=== PATIENT | male | born 1955 | race Caucasian/White ===

== ENCOUNTER 2018-04-26 09:19 | Inpatient (IN) | payer MEDICARE, MEDICAID ==
[~2018-04-26] VITALS: Ht 185.4 cm; Wt 100.9 kg
[2018-04-26] MEDS ORDERED: BUPIVACAINE/PF 0.5% ONE (10:01)
[2018-04-26] MEDS ORDERED: BACITRACIN 50,000 UNIT ONE (10:01)
[2018-04-26] MEDS ORDERED: BACITRACIN OINT 500U/GM, 15 GM ONE (10:01)
[2018-04-26] MEDS ORDERED: EPINEPHRINE 1 MG/ML, 1ML ONE (10:01)
[2018-04-26] MEDS ORDERED: LACTATED RINGERS 1,000 ML IV SCH (12:24)
[2018-04-26] MEDS ORDERED: ATOR20TA PO (12:35)
[2018-04-26] MEDS ORDERED: VARE1TAB21 PO (12:35)
[2018-04-26] MEDS ORDERED: SITA1TAB5 PO (12:35)
[2018-04-26] MEDS ORDERED: DULA1.5P INJ (12:35)
[2018-04-26] MEDS ORDERED: ASPI-496 PO (12:35)
[2018-04-26] MEDS ORDERED: GABA800T2 PO (12:35)
[2018-04-26] MEDS ORDERED: EMPA25TA PO (12:35)
[2018-04-26] MEDS ORDERED: TIZA4CAP PO (12:35)
[2018-04-26] MEDS ORDERED: DICL50TA4 PO (12:35)
[2018-04-26] MEDS ORDERED: CARV6.252 PO (12:35)
[2018-04-26] MEDS ORDERED: OXYC-307 PO (12:35)
[2018-04-26 13:05] VITALS: BP 131/85
[2018-04-26] MEDS ORDERED: MIDAZOLAM 1 MG/ML, 2ML ONE (13:38)
[2018-04-26] MEDS ORDERED: FENTANYL PF 250 MCG/5ML ONE (13:38)
[2018-04-26] MEDS ORDERED: CEFAZOLIN 1,000 MG ONE (13:39)
[2018-04-26] MEDS ORDERED: ROCURONIUM 10MG/ML,5ML ONE (13:39)
[2018-04-26] MEDS ORDERED: NEOSTIGMINE 1 MG/ML, 10ML ONE (13:39)
[2018-04-26] MEDS ORDERED: DEXAMETHASONE 4 MG/ML, 1ML ONE (13:39)
[2018-04-26] MEDS ORDERED: GLYCOPYRROLATE 0.2MG/1ML, 5ML ONE (13:39)
[2018-04-26] MEDS ORDERED: ONDANSETRON 2MG/ML, 2ML ONE (13:39)
[2018-04-26] MEDS ORDERED: PROPOFOL 10 MG/ML, 20ML ONE (13:39)
[2018-04-26] MEDS ORDERED: SUCCINYLCHOLINE 20 MG/ML, 10ML ONE (13:39)
[2018-04-26] MEDS ORDERED: PROPOFOL 50 ML ONE (13:45)
[2018-04-26] MEDS ORDERED: LIDOCAINE-MPF 2% ,5ML ONE (14:36)
[2018-04-26] MEDS ORDERED: LIDOCAINE 4%, 4 ML SYR/CANN TP ONE (14:36)
[2018-04-26] MEDS ORDERED: EPHEDRINE 50 MG/ML, 1ML ONE (14:36)
[2018-04-26] MEDS ORDERED: DIAZEPAM 5 MG/ML, 2ML IVPush PRN (15:00)
[2018-04-26] MEDS ORDERED: OXYcodone 5 MG/5 ML ORAL.SOL UDC PO PRN (15:00)
[2018-04-26] MEDS ORDERED: FENTANYL PF 100 MCG/2ML IV PRN (15:00)
[2018-04-26] MEDS ORDERED: HYDROmorphone 1 MG/ML, 1ML IV PRN (15:00)
[2018-04-26] MEDS ORDERED: ONDANSETRON ODT 8 MG PO PRN (15:00)
[2018-04-26] MEDS ORDERED: PROCHLORPERAZINE 5 MG/ML, 2ML IV PRN (15:00)
[2018-04-26] MEDS ORDERED: MEPERIDINE/PF 25MG/0.5ML IVPush PRN (15:00)
[2018-04-26] MEDS ORDERED: ONDANSETRON 2MG/ML, 2ML IV PRN ×2 (15:00→18:30)
[2018-04-26] MEDS ORDERED: ALBUTEROL/IPRATROPIUM 2.5MG/0.5MG, 3 ML NPPB PRN (15:00)
[2018-04-26] MEDS ORDERED: MORPHINE SULFATE 4 MG/ML, 1ML IVPush PRN (15:00)
[2018-04-26] MEDS ORDERED: ACETAMINOPHEN 325 MG TABLET PO PRN (15:00)
[2018-04-26] MEDS ORDERED: ACETAMINOPHEN 650 MG/20.3 ML UDC ONE (16:39)
[2018-04-26] MEDS ORDERED: OXYcodone 5 MG/5 ML ORAL.SOL UDC ONE (16:40)
[2018-04-26] MEDS ORDERED: FENTANYL PF 100 MCG/2ML ONE (16:40)
[2018-04-26 17:30] VITALS: BP 143/88
[2018-04-26] MEDS ORDERED: DIPHENHYDRAMINE 50 MG CAPSULE PO PRN (18:30)
[2018-04-26] MEDS ORDERED: BISACODYL 10 MG SUPP PR PRN (18:30)
[2018-04-26] MEDS ORDERED: OXYcodone/APAP 5/325MG TABLET PO PRN (18:30)
[2018-04-26] MEDS ORDERED: morphine SULFATE 10 MG/ML, 1ML IV PRN (18:30)
[2018-04-26] MEDS ORDERED: MAGNESIUM HYDROXIDE 8%, 30ML UDC PO PRN (18:30)
[2018-04-26] MEDS ORDERED: DIPHENHYDRAMINE 50 MG/ML, 1ML IM PRN (18:30)
[2018-04-26] MEDS ORDERED: DIPHENHYDRAMINE 50 MG/ML, 1ML IVPush PRN (18:30)
[2018-04-26] MEDS ORDERED: PROMETHAZINE 25 MG/ML, 1ML IM PRN (18:30)
[2018-04-26] MEDS ORDERED: CYCLOBENZAPRINE 10 MG TABLET PO PRN (18:30)
[2018-04-26] MEDS: TIZANIDINE 4MG TABLET PO SCH (20:13)
[2018-04-26] MEDS: NS + 20MEQ KCL 1,000 ML IV SCH (20:22)
[2018-04-26 20:28] VITALS: BP 139/92
[2018-04-26] MEDS ORDERED: ATORVASTATIN 20 MG TABLET PO SCH (21:00)
[2018-04-26] MEDS ORDERED: JANUMET HOMEMEDPO SCH (21:00)
[2018-04-26] MEDS ORDERED: GABAPENTIN 400 MG CAPSULE PO SCH (21:00)
[2018-04-26] MEDS: INSULIN REGULAR 100 UNITS/ML, 3ML VIAL SQ-INSULIN SCH (21:00)
[2018-04-26] MEDS ORDERED: CEFAZOLIN 2,000 MG in SODIUM CHLORIDE 0.9% 50 ML IVPB SCH (21:30)
[2018-04-26] MEDS: VARENICLINE 1MG TABLET PO SCH (22:05)
[2018-04-26] MEDS: metFORMIN 500 MG TABLET PO SCH (22:06)
[2018-04-26] MEDS: CEFAZOLIN PMX 2GM/50ML 50 ML IVPB SCH (23:08)
[2018-04-27 00:06] VITALS: BP 125/84
[2018-04-27] MEDS ORDERED: CARVEDILOL 6.25 MG TABLET PO SCH (06:00)
[2018-04-27 06:03] VITALS: BP 118/85
[2018-04-27] MEDS: TIZANIDINE 4MG TABLET PO SCH ×3 (06:04→15:17)
[2018-04-27] MEDS: NS + 20MEQ KCL 1,000 ML IV SCH ×2 (06:05→16:49)
[2018-04-27] MEDS: INSULIN REGULAR 100 UNITS/ML, 3ML VIAL SQ-INSULIN SCH ×3 (06:05→16:00)
[2018-04-27 07:05] VITALS: BP 116/73
[2018-04-27] MEDS: VARENICLINE 1MG TABLET PO SCH (07:59)
[2018-04-27] MEDS: metFORMIN 500 MG TABLET PO SCH ×2 (07:59→16:50)
[2018-04-27] MEDS ORDERED: CEFAZOLIN 2,000 MG in SODIUM CHLORIDE 0.9% 50 ML IVPB ONE ×2 (08:30)
[2018-04-27] MEDS ORDERED: CEFAZOLIN PMX 2GM/50ML 50 ML IVPB ONE (08:30)
[2018-04-27] MEDS ORDERED: LINAGLIPTIN 5 MG TAB PO SCH (09:00)
[2018-04-27] MEDS ORDERED: SENNA/DOCUSATE TABLET PO SCH (09:00)
[2018-04-27] MEDS: CEFAZOLIN PMX 2GM/50ML 50 ML IVPB SCH (09:16)
[2018-04-27 12:22] VITALS: BP 112/73
[2018-04-27 17:01] VITALS: BP 122/82
== END 2018-04-27 17:44 | disposition home or self-care (01) | DRG 520 ==
LOC: ORIP 11:34 → 4NOR 17:27
PROVIDERS: ADMIT Neurological Surgery; ATTEND Neurological Surgery
PROC: 0SB20ZZ Excision of Lumbar Vertebral Disc, Open Approach (ICD-10-PCS; 2018-04-26)
PROC: 00NY0ZZ Release Lumbar Spinal Cord, Open Approach (ICD-10-PCS; 2018-04-26)
PROC: 4A11X4G Monitoring of Peripheral Nervous Electrical Activity, Intraoperative, External Approach (ICD-10-PCS; 2018-04-26)
PROC: 01NB0ZZ Release Lumbar Nerve, Open Approach (ICD-10-PCS; principal; 2018-04-26 14:00)
DX: M48.07 Spinal stenosis, lumbosacral region (principal); M51.17 Intervertebral disc disorders with radiculopathy, lumbosacral region; E11.9 Type 2 diabetes mellitus without complications; G43.909 Migraine, unspecified, not intractable, without status migrainosus; Z90.49 Acquired absence of other specified parts of digestive tract; Z80.9 Family history of malignant neoplasm, unspecified; Z83.3 Family history of diabetes mellitus; M51.26 Other intervertebral disc displacement, lumbar region
CPT/HCPCS: 72100; 82962; G0378; J0171; J0690; J1100; J2250; J2405; J2704; J2710; J3010; J3490; J0330; J1200; J7120